=== PATIENT | female | born 1965 | race Hispanic/Latino ===

== ENCOUNTER 2017-12-13 15:20 | Outpatient (CLI) | payer BC | END 2017-12-13 15:21 | disposition home or self-care (01) | LOC: BICMAMMO 15:20 | PROVIDERS: ATTEND Family Medicine | DX: Z12.31 Encounter for screening mammogram for malignant neoplasm of breast (principal) | CPT/HCPCS: 77063; 77067 ==

== ENCOUNTER 2019-01-08 05:59 | Day surgery (SDC) | payer BC ==
[2019-01-07 12:26] VITALS: BMI 29.2
[2019-01-08] MEDS ORDERED: Ketorolac Tromethamine 30 MG/ML VIAL ONE (06:15)
[2019-01-08 06:31] LABS: #Basophils 0.1 thou/uL (0.0-0.2); #Eosinphils 0.4 thou/uL (0.0-0.7); #Lymphocytes 2.4 thou/uL (1.20-3.40); #Monocytes 0.6 thou/uL (0.11-0.59); #Neutrophils 1.9 thou/uL (1.40-6.50); %Basophils 2.1 % (0.0-1.0); %Eosinophils 7.4 % (0.0-10.0); %Lymphocytes 44.1 % (21.0-51.0); %Monocytes 10.7 % (0.0-10.0); %Neutrophils 35.7 % (42.0-75.0); Hemoglobin 12.9 g/dL (12.0-16.0); Mean Corpuscular HGB CONC 32.8 g/dL (32.0-36.0); Mean Corpuscular Hemoglobin 31.5 pg (27.0-31.0); Mean Corpuscular Volume 96.1 fL (78.0-98.0); Mean Platelet Volume 6.6 fL (7.4-10.4); Platelet Count 367 thou/uL (130-400); RBC Distribution Width 11.3 % (11.5-14.5); Red Blood Cell (RBC) Count 4.09 mill/uL (4.20-5.40); White Blood Cell (WBC) Count 5.4 thou/uL (4.8-10.8)
[2019-01-08] MEDS ORDERED: Fentanyl 100 MCG/2 ML VIAL ONE (06:40)
[2019-01-08] MEDS ORDERED: Bupivacaine/Epinephrine 0.25% 30 ML VIAL ONE ×2 (06:47→08:09)
[2019-01-08 06:51] LABS: Anion Gap 9 mmol/L (10-20); BUN (Urea Nitrogen) 10 mg/dL (9.8-20.1); Calc. Creatinine Clearance 107 mL/min (70-130); Calcium 9.1 mg/dL (7.8-10.44); Carbon Dioxide 27 mmol/L (22-29); Chloride 108 mmol/L (98-107); Estimated GFR-MDRD 80; Glucose 91 mg/dL (70-105); Potassium 4.4 mmol/L (3.5-5.1); Sodium 140 mmol/L (136-145)
[2019-01-08] MEDS ORDERED: Midazolam HCl 2 mg/2 ml Vial ONE (07:19)
[2019-01-08] MEDS ORDERED: Dexamethasone 20 MG/5 ML VIAL ONE (09:49)
[2019-01-08] MEDS ORDERED: Rocuronium Bromide 10 MG/ML (10ML VIAL) ONE (09:49)
[2019-01-08] MEDS ORDERED: ePHEDrine 50 MG/ML VIAL ONE (09:49)
[2019-01-08] MEDS ORDERED: Lidocaine 1% PF 5 ML VIAL ONE (09:49)
[2019-01-08] MEDS ORDERED: Succinylcholine Chloride 20 MG/ML 10 ml SYRINGE FS ONE (09:49)
[2019-01-08] MEDS ORDERED: Ondansetron PF 4 MG/2 ML Vial ONE (09:49)
[2019-01-08] MEDS ORDERED: PROPOFOL 200 MG/20 ML VIAL ONE (09:49)
[2019-01-08] MEDS ORDERED: Glycopyrrolate 0.2 MG/ML 5 ML SYRINGE ONE (09:49)
[2019-01-08] MEDS ORDERED: HYDROcodone/Acetaminophen 5/325 mg Tablet ONE (11:52)
--- NOTE | 2019-01-08 14:34 | OP ---
DATE OF PROCEDURE: 01/08/2019 PREOPERATIVE DIAGNOSES: 10 cm left flank lipoma, 5 cm left anterior chest wall lipoma. POSTOPERATIVE DIAGNOSES: 10 cm left flank lipoma, 5 cm left anterior chest wall lipoma with the left flank lipoma being subfascial/ intramuscular. PROCEDURES PERFORMED: Excision of left flank 10 cm intramuscular lipoma. Excision of 5 cm left chest subcutaneous lipoma. LEAD HOUSE[employer]EEPER: Amanda Bustos, medical student. ANESTHESIA: General with laryngeal mask airway. INDICATIONS: The patient is a 53-year-old female. She presents with a large visible mass on her left flank. This has ultrasound appearance consistent with a submuscular lipoma. I have recommended excision. She additionally has a soft tissue tumor on her left anterior chest that she requests to be excised during the same anesthetic. DESCRIPTION OF OPERATION: Informed consent was obtained. The patient was taken to the operating room where general anesthesia obtained with the patient in supine position. She was then rolled over into a right lateral decubitus position using the beanbag device. The left flank was prepped with ChloraPrep and draped in sterile fashion. Local anesthetic was infiltrated using 0.25% Marcaine with epinephrine. A longitudinal incision was created over the longest dimension of the tumor. Dissection was carried through skin and subcutaneous tissue. This was a well-encapsulated lipoma that was easily dissected free from the surrounding tissue once the overlying fascia was incised. It was removed intact and passed off the field. Meticulous hemostasis obtained. Additional local anesthetic was infiltrated. The wound was closed in layers using 3-0 Vicryl to close the deep layer and obliterate the space. The remainder was closed in anatomic layers with 3-0 and 4-0 Monocryl. Dermabond was placed externally. Attention was then rolled over into the supine position. The chest wall was prepped with ChloraPrep and draped in sterile fashion. Again, local anesthetic was infiltrated. A vertical incision was created as this was the longest axis of the tumor. Dissection was carried through skin and subcutaneous tissue. The lipoma was dissected free circumferentially and removed intact. There was some oozing from the underlying upper pectoral muscle, it was controlled with electrocautery. Additional local anesthetic was infiltrated. The wound was closed in layers with 3-0 and 4-0 Monocryl suture, taking care to obliterate the space once again. Again, Dermabond was placed externally. There were no complications. The patient tolerated the procedure well and was taken to recovery room in stable condition. Job ID: [id number]
== END 2019-01-08 12:30 | disposition home or self-care (01) ==
LOC: SDC 05:59
PROVIDERS: ATTEND Specialist
PROC: 0JB60ZZ Excision of Chest Subcutaneous Tissue and Fascia, Open Approach (ICD-10-PCS; principal; 2019-01-08)
PROC: 0JB70ZZ Excision of Back Subcutaneous Tissue and Fascia, Open Approach (ICD-10-PCS; principal; 2019-01-08)
DX: D17.1 Benign lipomatous neoplasm of skin and subcutaneous tissue of trunk (principal)
CPT/HCPCS: 36415; 80048; 85025; 88304; J0131; J0690; J1100; J1885; J2001; J2250; J2405; J2704; J3010; J3490

== ENCOUNTER 2019-02-13 14:05 | Outpatient (CLI) | payer BC ==
--- NOTE | 2019-02-13 14:46 | MMO ---
Right Breast MAMMO Unilat Diag DDI RT+CONTRERAS. CLINICAL HISTORY: Patient is 53 years old and is seen for additional evaluation requested from prior study. The patient has no family history of breast cancer. The patient has no personal history of cancer. VIEWS: The views performed were: right craniocaudal spot compression magnification; right mediolateral spot compression magnification; and right mediolateral with tomosynthesis. FILMS COMPARED: The present examination has been compared to prior imaging studies performed at [facility] on 06/09/2015, 08/10/2016, 12/13/2017 and 01/30/2019. MAMMOGRAM FINDINGS: The breast is heterogeneously dense, which could obscure a lesion on mammography. There are stable amorphous or indistinct calcifications with regional distribution seen in the right breast. There are no suspicious masses, suspicious calcifications, or new areas of architectural distortion. IMPRESSION: THERE IS NO MAMMOGRAPHIC EVIDENCE OF MALIGNANCY. A ROUTINE FOLLOW-UP MAMMOGRAM IN 1 YEAR IS RECOMMENDED. THE RESULTS OF THIS EXAM WERE SENT TO THE PATIENT. ACR BI-RADS Category 2 - Benign finding MAMMOGRAPHY NOTE: 1. A negative mammogram report should not delay a biopsy if a dominant of clinically suspicious mass is present. 2. Approximately 10% to 15% of breast cancers are not detected by mammography. 3. Adenosis and dense breasts may obscure an underlying neoplasm. Reported by: RAFA GOMEZ MD Electonically Signed: [id number]
== END 2019-02-13 14:06 | disposition home or self-care (01) ==
LOC: BICMAMMO 14:05
PROVIDERS: ATTEND Family Medicine
DX: R92.1 Mammographic calcification found on diagnostic imaging of breast (principal)
CPT/HCPCS: G0279

== ENCOUNTER 2020-07-20 14:55 | Outpatient (CLI) | payer BC ==
--- NOTE | 2020-07-20 16:41 | MMO ---
Bilateral MAMMO Bilat Screen DDI+CNOTRERAS. CLINICAL HISTORY: Patient is 55 years old and is seen for screening. The patient has no family history of breast cancer. The patient has no personal history of cancer. VIEWS: The views performed were: bilateral craniocaudal with tomosynthesis and bilateral mediolateral oblique with tomosynthesis. FILMS COMPARED: The present examination has been compared to prior imaging studies performed at [facility] on 08/10/2016, 12/13/2017, 01/30/2019 and 02/13/2019. This study has been interpreted with the assistance of computer-aided detection. MAMMOGRAM FINDINGS: The breasts are heterogeneously dense, which could obscure a lesion on mammography. Finding 1: There are stable benign appearing calcifications seen in both breasts. Finding 2: There is a lobular mass measuring 14 x 21 mm with circumscribed margins seen in the left breast. PRIOR CYST ON ULTRASOUND There are no suspicious masses, suspicious calcifications, or new areas of architectural distortion. IMPRESSION: THERE IS NO MAMMOGRAPHIC EVIDENCE OF MALIGNANCY. A ROUTINE FOLLOW-UP MAMMOGRAM IN 1 YEAR IS RECOMMENDED. THE RESULTS OF THIS EXAM WERE SENT TO THE PATIENT. ACR BI-RADS Category 2 - Benign finding MAMMOGRAPHY NOTE: 1. A negative mammogram report should not delay a biopsy if a dominant of clinically suspicious mass is present. 2. Approximately 10% to 15% of breast cancers are not detected by mammography. 3. Adenosis and dense breasts may obscure an underlying neoplasm. Reported by: RAFA GOMEZ MD Electonically Signed: [id number]
== END 2020-07-20 14:56 | disposition home or self-care (01) ==
LOC: BICMAMMO 14:55
PROVIDERS: ATTEND Family Medicine
DX: Z12.31 Encounter for screening mammogram for malignant neoplasm of breast (principal)
CPT/HCPCS: 77063; 77067

== ENCOUNTER 2021-07-26 15:01 | Outpatient (CLI) | payer BC | END 2021-07-26 15:02 | disposition home or self-care (01) | LOC: BICMAMMO 15:01 | PROVIDERS: ATTEND Family Medicine | DX: Z12.31 Encounter for screening mammogram for malignant neoplasm of breast (principal) | CPT/HCPCS: 77063; 77067 ==

== ENCOUNTER 2022-10-10 14:06 | Outpatient (CLI) | payer BC | END 2022-10-10 14:07 | disposition home or self-care (01) | LOC: BICMAMMO 14:06 | PROVIDERS: ATTEND Family Medicine | DX: Z12.31 Encounter for screening mammogram for malignant neoplasm of breast (principal) | CPT/HCPCS: 77063; 77067 ==